=== PATIENT | male | born 1995 | race Caucasian/White ===

== ENCOUNTER 2018-02-26 14:35 | Emergency (ER) | payer MEDICAID, OTHER ==
[2018-02-26 14:53] VITALS: BP 123/92; PULSE 92; RESP 17; TEMP 98.2; O2SAT 96
== END 2018-02-26 16:29 | disposition left against medical advice (07) ==
DX: Z53.21 Procedure and treatment not carried out due to patient leaving prior to being seen by health care provider (principal)

== ENCOUNTER 2018-08-11 12:59 | Emergency (ER) | payer MEDICAID ==
--- NOTE | 2018-08-11 14:18 | EDPHY ---
H & P Stated Complaint: PT WITH FREQ [facility]S FOR LAST YEAR/HAD BEEN DX WITH MIGRAINES YEARS AGO Time Seen by Provider: 08/11/18 14:18 HPI/ROS: Patient was never seen by myself in the ER on 08/11/18. - Personal History Current Tetanus Diphtheria and Acellular Pertussis (TDAP): Yes - Medical/Surgical History Hx Asthma: No Hx Chronic Respiratory Disease: No Hx Diabetes: No Hx Cardiac Disease: No Hx Renal Disease: No Hx Cirrhosis: No Hx Alcoholism: No Hx HIV/AIDS: No Hx Splenectomy or Spleen Trauma: No Other PMH: r wrist fx - Social History Smoking Status: Never smoked Constitutional: Initial Vital Signs Temperature (C) 36.9 C 08/11/18 13:02 Heart Rate 76 08/11/18 13:02 Respiratory Rate 17 08/11/18 13:02 Blood Pressure 123/83 H 08/11/18 13:02 O2 Sat (%) 98 08/11/18 13:02 O2 Delivery Mode Room Air Allergies/Adverse Reactions: No Known Allergies Allergy (Verified 08/11/18 13:00) Home Medications: Medication Instructions Recorded Ibuprofen 08/11/18 Metoclopramide [Reglan 10 mg tab 10 mg PO BID PRN #10 tab 08/11/18 (RX)] Medical Decision Making - Diagnostics Imaging Results: Imaging Impressions Head CT 08/11/18 14:37 Impression: No acute intracranial findings. If symptoms persist and clinical suspicion warrants, consider MRI. Findings discussed with RAMANDEEP BOOTH 08/11/2018 at 15:34. - Data Points Laboratory Results: Laboratory Results 08/11/18 14:51 08/11/18 14:51 08/11/18 08/11/18 14:51 14:51 WBC 9.60 10^3/uL H 10^3/uL (3.80-9.50) RBC 5.84 10^6/uL 10^6/uL (4.40-6.38) Hgb 17.0 g/dL g/dL (13.7-17.5) Hct 50.5 % % (40.0-51.0) MCV 86.5 fL fL (81.5-99.8) MCH 29.1 pg pg (27.9-34.1) MCHC 33.7 g/dL g/dL (32.4-36.7) RDW 13.2 % % (11.5-15.2) Plt Count 247 10^3/uL 10^3/uL (150-400) MPV 11.5 fL fL (8.7-11.7) Neut % (Auto) 70.2 % % (39.3-74.2) Lymph % (Auto) 19.9 % % (15.0-45.0) [place] % (Auto) 8.3 % % (4.5-13.0) Eos % (Auto) 0.5 % L % (0.6-7.6) Baso % (Auto) 0.8 % % (0.3-1.7) Nucleat RBC Rel Count 0.0 % % (0.0-0.2) Absolute Neuts (auto) 6.73 10^3/uL H 10^3/uL (1.70-6.50) Absolute Lymphs (auto) 1.91 10^3/uL 10^3/uL (1.00-3.00) Absolute Monos (auto) 0.80 10^3/uL 10^3/uL (0.30-0.80) Absolute Eos (auto) 0.05 10^3/uL 10^3/uL (0.03-0.40) Absolute Basos (auto) 0.08 10^3/uL 10^3/uL (0.02-0.10) Absolute Nucleated RBC 0.00 10^3/uL 10^3/uL (0-0.01) Immature Gran % 0.3 % % (0.0-1.1) Immature Gran # 0.03 10^3/uL 10^3/uL (0.00-0.10) Sodium 142 mEq/L mEq/L (135-145) Potassium 4.4 mEq/L mEq/L (3.3-5.0) Chloride 106 mEq/L mEq/L (97-110) Carbon Dioxide 25 mEq/l mEq/l (22-31) Anion Gap 11 mEq/L mEq/L (8-16) BUN 14 mg/dL mg/dL (7-23) Creatinine 0.9 mg/dL mg/dL (0.7-1.3) Estimated GFR > 60 Glucose 86 mg/dL mg/dL (70-100) Calcium 10.1 mg/dL mg/dL (8.5-10.4) Medications Given: Discontinued Medications Diphenhydramine HCl (Benadryl Injection) 25 mg IVP EDNOW ONE Stop: 08/11/18 15:21 Last Admin: 08/11/18 15:21 Dose: 25 mg Sodium Chloride (Ns) 1,000 mls @ 0 mls/hr IV ONCE ONE; Wide Open PRN Reason: Protocol Stop: 08/11/18 14:34 Last Admin: 08/11/18 14:51 Dose: 1,000 mls Metoclopramide HCl (Reglan Injection) 10 mg IVP EDNOW ONE Stop: 08/11/18 14:34 Last Admin: 08/11/18 14:54 Dose: 10 mg Departure - Departure Disposition: Home, Routine, Self-Care Clinical Impression: Recurrent headache Condition: Fair Instructions: Tension Headache (ED) Referrals: NONE *PRIMARY CARE P,. [Primary Care Provider] - As per Instructions Ramandeep Pierce DO [Doctor of Osteopathy] - 5-7 days, call for appt. Prescriptions: Metoclopramide [Reglan 10 mg tab (RX)] 10 mg PO BID PRN #10 tab PRN Reason: Headache
[2018-08-11] MEDS ORDERED: NS 1,000 ML IV ONE (14:33)
[2018-08-11] MEDS ORDERED: METOCLOPRAMIDE 10 MG/2 ML VIAL IVP ONE (14:33)
--- NOTE | 2018-08-11 14:43 | EDPHY ---
H & P Stated Complaint: PT WITH FREQ VASQUEZ'S FOR LAST YEAR/HAD BEEN DX WITH MIGRAINES YEARS AGO Time Seen by Provider: 08/11/18 14:18 HPI/ROS: CHIEF COMPLAINT: Headache HISTORY OF PRESENT ILLNESS: The patient is a 23-year-old man with a history of frequent headaches and previous diagnosis of migraines. He states that he has had headaches since he was a child and used to take migraine medication but no longer does. He states that he has had increasing frequency however and now has a headache almost daily. He states that he takes ibuprofen once or twice per day in order to minimize his headaches. 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 No focal weakness or deficits. He occasionally sees flashing lights prior to the headaches. He has a history of congenital renal malformation. This was found incidentally on a scan performed for research testing. He does not think he has ever had a scan of his brain. This is not the worst headache of his life he has simply tired of dealing with them. Severity: Moderate Modifying factors: Ibuprofen REVIEW OF SYSTEMS: Constitutional: denies: chills, fever, recent illness, recent injury EENTM: denies: blurred vision, double vision, nose congestion Respiratory: denies: cough, shortness of breath Cardiac: denies: chest pain, irregular heart rate, lightheadedness, palpitations Gastrointestinal/Abdominal: denies: abdominal pain, diarrhea, nausea, vomiting, blood streaked stools Genitourinary: denies: dysuria, frequency, hematuria, pain Musculoskeletal: denies: joint pain, muscle pain Skin: denies: lesions, rash, jaundice, bruising Neurological: See HPI denies: numbness, paresthesia, tingling, dizziness, weakness Hematologic/Lymphatic: denies: blood clots, easy bleeding, easy bruising Immunologic/allergic: denies: HIV/AIDS, transplant 10 systems reviewed and negative except as noted EXAM: GENERAL: Well-appearing, well-nourished and in no acute distress. HEAD: Atraumatic, normocephalic. EYES: Pupils equal round and reactive to light, extraocular movements intact, sclera anicteric, conjunctiva are normal. ENT: TMs normal, nares patent, oropharynx clear without exudates. Moist mucous membranes. NECK: Normal range of motion, supple without lymphadenopathy or JVD. LUNGS: Breath sounds clear to auscultation bilaterally and equal. No wheezes rales or rhonchi. HEART: Regular rate and rhythm without murmurs, rubs or gallops. ABDOMEN: Soft, nontender, normoactive bowel sounds. No guarding, no rebound. No masses appreciated. BACK: No CVA tenderness, no spinal tenderness, step-offs or deformities EXTREMITIES: Normal range of motion, no pitting or edema. No clubbing or cyanosis. NEUROLOGICAL: Cranial nerves II through XII grossly intact. Normal speech, normal gait. 5/5 strength, normal movement in all extremities, normal sensation , normal reflexes PSYCH: Normal mood, normal affect. SKIN: Warm, dry, normal turgor, no visible rashes or lesions. Source: Patient Exam Limitations: No limitations - Personal History Current Tetanus Diphtheria and Acellular Pertussis (TDAP): Yes - Medical/Surgical History Hx Asthma: No Hx Chronic Respiratory Disease: No Hx Diabetes: No Hx Cardiac Disease: No Hx Renal Disease: No Hx Cirrhosis: No Hx Alcoholism: No Hx HIV/AIDS: No Hx Splenectomy or Spleen Trauma: No Other PMH: r wrist fx - Family History Significant Family History: No pertinent family hx - Social History Smoking Status: Never smoked Alcohol Use: Sober Drug Use: None Constitutional: Initial Vital Signs Temperature (C) 36.9 C 08/11/18 13:02 Heart Rate 76 08/11/18 13:02 Respiratory Rate 17 08/11/18 13:02 Blood Pressure 123/83 H 08/11/18 13:02 O2 Sat (%) 98 08/11/18 13:02 O2 Delivery Mode Room Air Allergies/Adverse Reactions: No Known Allergies Allergy (Verified 08/11/18 13:00) Home Medications: Medication Instructions Recorded Ibuprofen 08/11/18 Metoclopramide [Reglan 10 mg tab 10 mg PO BID PRN #10 tab 08/11/18 (RX)] Medical Decision Making - Diagnostics Imaging: Discussed imaging studies w/ line haul truck driver Radiologist ED Course/Re-evaluation: Because of the patient's history of renal malformation and no previous CT scans we agreed to perform CT imaging. He does not have any neurologic deficits on exam. 3:40 p.m. the patient is feeling much better. We discussed the CT results. He is reassured. His headache is resolved. I will prescribe him Reglan to take at home if needed and encouraged him to not take so much ibuprofen. I will give him referral to Neurology. He is happy with this plan and declines further workup or testing at this time. Differential Diagnosis: Partial list of the Differential diagnosis considered include but were not limited to; headache, migraine the and although unlikely based on the history and physical exam, I also considered infection, trauma, aneurysm, tumor, seizure. I discussed these differential diagnoses and the plan with the patient as well as the usual and expected course. The patient understands that the diagnosis is provisional and that in medicine we are not always correct and that further workup is often warranted. Usual and customary warnings were given. All of the patient's questions were answered. The patient was instructed to return to the emergency department should the symptoms at all worsen or return, otherwise to followup with the physician as we discussed. - Data Points Laboratory Results: Laboratory Results 08/11/18 14:51 08/11/18 14:51 Medications Given: Discontinued Medications Diphenhydramine HCl (Benadryl Injection) 25 mg IVP EDNOW ONE Stop: 08/11/18 15:21 Last Admin: 08/11/18 15:21 Dose: 25 mg Sodium Chloride (Ns) 1,000 mls @ 0 mls/hr IV ONCE ONE; Wide Open PRN Reason: Protocol Stop: 08/11/18 14:34 Last Admin: 08/11/18 14:51 Dose: 1,000 mls Metoclopramide HCl (Reglan Injection) 10 mg IVP EDNOW ONE Stop: 08/11/18 14:34 Last Admin: 08/11/18 14:54 Dose: 10 mg Departure - Departure Disposition: Home, Routine, Self-Care Clinical Impression: Recurrent headache Condition: Fair Instructions: Tension Headache (ED) Referrals: NONE *PRIMARY CARE P,. [Primary Care Provider] - As per Instructions Lupillo Pierce DO [Doctor of Osteopathy] - 5-7 days, call for appt. Prescriptions: Metoclopramide [Reglan 10 mg tab (RX)] 10 mg PO BID PRN #10 tab PRN Reason: Headache
[2018-08-11 15:03] LABS: PLATELET COUNT 247 10^3/uL (150-400)
[2018-08-11 15:24] VITALS: BP 126/75
== END 2018-08-11 15:52 | disposition home or self-care (01) ==
DX: G44.209 Tension-type headache, unspecified, not intractable (principal); E86.9 Volume depletion, unspecified
CPT/HCPCS: 96374; J1200; J2765